=== PATIENT | female | born 1935 ===

== ENCOUNTER 2020-02-03 09:00 | Inpatient (IN) | payer OTHER ==
[~2020-02-03] VITALS: Ht 147.3 cm; Wt 38.1 kg
[2020-02-03] MEDS ORDERED: SYNTHROID50 MCG PO (13:03)
[2020-02-03] MEDS ORDERED: ANASTROZOLE1 MG PO (13:03)
[2020-02-03] MEDS ORDERED: ZESTRIL2.5 MG PO (13:03)
[2020-02-10] MEDS ORDERED: REFRESH TEARS15 ML (14:49)
[2020-02-10] MEDS ORDERED: FOLIC ACID1 MG (14:49)
[2020-02-11] MEDS ORDERED: ULTRACET PO (11:14)
== END 2020-02-11 15:15 | disposition home or self-care (01) | DRG 334 ==
LOC: SURH 02-10 09:00 → O/R 02-10 11:31 → SURH 02-10 11:31
PROVIDERS: ADMIT Surgery; ATTEND Surgery
PROC: 0DTP7ZZ Resection of Rectum, Via Natural or Artificial Opening (ICD-10-PCS; principal; 2020-02-10 10:15)
DX: K62.3 Rectal prolapse (principal); R15.9 Full incontinence of feces